=== PATIENT | female | born 1945 | race Caucasian/White ===

== ENCOUNTER 2017-02-17 08:43 | Inpatient (IN) | payer MEDICARE ==
[2017-02-17] VITALS (13 sets, daily range): BP systolic 94–145; BP diastolic 58–73; PULSE 82–105; RESP 16–26; O2SAT 93–95
[~2017-02-17] VITALS: Ht 162.6 cm; Wt 88.0 kg
[2017-02-17] MEDS: Lactated Ringer's 1,000 ML IV SCH ×3 (05:00→11:51)
[~2017-02-17 08:43] MED LIST: ALBU8.5H2 INHALATION; BENA20TA PO; CALC600T12 PO; CeFAZolin 2 Gm/50 mL D5W IV Premix IV ONE; GABA-502 PO; KLO5T PO; LEVO75TA36 PO; MELO-253 PO; RIZA10TA26 PO; VENL150C PO; Vancomycin Inj 1,000 MG in IV Premix 1 EACH IV ONE
[2017-02-17] MEDS ORDERED: fentaNYL-PF 50 mCg/mL 2 mL Inj ONE (09:00)
[2017-02-17] MEDS ORDERED: Dexamethasone 4 mg/mL Inj ONE (09:00)
[2017-02-17] MEDS ORDERED: Propofol 10,000 mCg/mL 20 mL Inj ONE (09:00)
[2017-02-17] MEDS ORDERED: Bupiv-Spinal 0.75%/Dex 8.25% 2 mL Inj ONE (09:00)
[2017-02-17] MEDS ORDERED: CeFAZolin Inj 2 gm / 50mL D5W IV ONE (09:08)
[2017-02-17] MEDS ORDERED: Tranexamic Acid 100 mg/mL 10 mL Inj ONE (11:56)
[2017-02-17] MEDS ORDERED: Bupivacaine Liposome 1.3% 20 mL Inj ONE (11:57)
[2017-02-17] MEDS ORDERED: 0.9% Sodium Chloride 200 ML ONE (12:02)
[2017-02-17] MEDS ORDERED: Bupivacaine Liposome 1.3% 20 mL Inj INFILTRATE ONE (12:29)
[2017-02-17] MEDS ORDERED: 0.9% Sodium Chloride 10 mL Inj INFILTRATE ONE (12:30)
[2017-02-17] MEDS ORDERED: Bupivacaine-MPF 0.5% W/EPI 30 mL Inj INFILTRATE ONE (12:30)
[2017-02-17] MEDS ORDERED: Bupivacaine-MPF 0.25%/EPI 30 mL Inj INFILTRATE ONE (12:30)
[2017-02-17] MEDS ORDERED: Lactated Ringer's 1,000 ML IV SCH (12:32)
[2017-02-17] MEDS ORDERED: Lactated Ringer's 500 ML IV PRN (12:32)
--- NOTE | 2017-02-17 12:32 | PCM.HPANE ---
Patient Data Surgeon Admitting Provider: Attending Provider:Sarthak Dickens DO Primary Care Physician:Violet Rendon PA-C Other Provider:Aimee Shah Anesthesia Reason for Visit Left Knee Arthritis Ht/WT & BMI Height (Feet): 5 Height (Inches): 3.5 Weight (Kilograms): 90.71 Body Mass Index 34.00 Allergies Coded Allergies: oxycodone (Verified Allergy, Unknown, hallucinations, 02/11/17) Uncoded Allergies: CHOCOLATE (Allergy, Unknown, 02/11/17) DAIRY (Allergy, Unknown, 02/11/17) GRASSES-MOLDS (Allergy, Unknown, 02/11/17) WHEAT-QUINOA (Allergy, Unknown, rash, 02/11/17) Past Anesthesia History Anesthesia History: Positive for:: Anesthesia Reactions (nausea/vomiting after surgery), Denies:: Abnormal Airway, Difficult Intubation, Fam Anesthesia Reaction Diabetes History Hx Diabetes?: No (A1C being monitored- no diabetes dx) MRSA MRSA: No Medications Hypertension Medication: Yes Home Meds Incl Beta Griffin: No Reported Medications Albuterol HFA (Proair HFA)8.5 Gm Hfa.aer.ad2 Puffs INHALATION Q4H PRN For Shortness of Breath #1 INHALER 02/11/17 Meloxicam 15 Mg [id number] Mg PO DAILY 30 Days Ref 0 02/11/17 Rizatriptan (Maxalt)10 Mg Vucgsg77 Mg PO PRN migraines 02/11/17 Levothyroxine (Levoxyl)75 Mcg Najbcj28 Mcg PO DAILY Ref 0 02/11/17 Gabapentin 300 Mg [id number] Mg PO BID Ref 0 02/11/17 Venlafaxine ER (Effexor XR)150 Mg [id number] Mg PO DAILY Ref 0 02/11/17 Clonazepam 0.5 Mg Tablet0.5 Mg PO BID PRN For Anxiety Ref 0 02/11/17 Calcium Carbonate (Calcium)600 Mg [id number] Mg PO BID 02/11/17 Benazepril 20 Mg Whgbrq00 Mg PO DAILY 02/11/17 History History of ENT Problems?: Yes HEENT History: Positive for:: Dysphagia (since ACDF- a little "touchy") Sinus Problem (nasal surgery) TMJ (clenches, no nightguard) Denies:: Abnormal Airway Cataracts Difficult Intubation Glaucoma Hearing Problem Denture Type: None Teeth Condition: Within Normal Limits Hx of Heart Problems?: Yes Cardiovascular History: Positive for:: Hypertension Denies:: AICD Abdominal Aortic Aneurism Atrial Fibrillation Cardiac Surgery Chest Pain Congestive Heart Failure Coronary Artery Disease Edema Heart Murmur Irregular Heartbeat Pacemaker Peripheral Vascular Rheumatic Fever Hx of Respiratory Problem?: Yes Respiratory History: Positive for:: Asthma Use of C-PAP Machine Use of Inhalers / NEBS Denies:: COPD Emphysema Oxygen Administration Pneumonia Tuberculosis Hx Neurologic Problems?: No Neurological History: Positive for:: Headaches (decreased since using CPAP) Denies:: Alzheimer's Disease CVA Multiple Sclerosis Parkinson's Disease Seizures TIA Hx of GI Problems?: No Hx of Problems?: No Genitourinary History: Denies:: Kidney Stones Urinary Tract Infection Female Hx: Denies:: Currently (hysterectomy) Problems with Breasts? Skin History: Denies:: History Skin Disorders? Pressure Ulcers Hx Musculoskeletal Problems?: Yes Musculoskeletal History: Positive for:: Back Injury (ACDF C3-5 ) Musculoskeletal Trauma (left knee current admission problem) Osteoarthritis Denies:: Fibromyalgia Joint Replacement Myasthenia Gravis Hx of Psycho/Social Problems?: Yes Psycho Social History: Positive for:: Anxiety Hx Depression Hx Surgeries?: Yes (Hyst, nasal surgery, ACDF, ORIF patella with hardware removal) Hx Any Other Health Problems?: Yes Other History: Positive for:: Thyroid Disease Denies:: Cancer History Blood Transfusions: Positive for:: Accept Blood Products? Denies:: Blood Transfusions Hx Diabetes: No (A1C being monitored- no diabetes dx) Hx Alcohol Use: YesAlcoholic Drinks Per Day: one drink dailyHx Substance Use: NoHave You Smoked inLast 12 mo: No Stop/Bang P-Blood Pressure: treated: Yes B- Body Mass Index > 35 kg/m2: No A- Age over 50: Yes N- Neck Large Circumference: No G- Gender Male: No Risk Assessment Category Category 1A: Patient has history of documented sleep apnea, and HAS NOT received any narcotic, sedative or anesthesia administration during this stay. Category 1B: Patient has history of documented sleep apnea, and HAS received any narcotic , sedative or anesthesia administration during this stay Category 2: Patient has SUSPECTED Obstructive Sleep Apnea, and HAS received any narcotic , sedative or anesthesia administration during this stay. Category 3: Patient has SUSPECTED Obstructive Sleep Apnea and HAS NOT received narcotic, sedative or anesthesia administration during this stay. Category 4: Outpatient in Procedural Areas with known sleep apnea or who screen positive for High Risk via the STOP/BANG questionnaire. Exam Exam General Appearance: Alert, Oriented X3, Cooperative, No Acute Distress HEENT/AIRWAY: MP 3 Lungs: Clear to Auscultation Heart: Exam Unremarkable Plan Impression Patient chart reviewed, patient interviewed and anesthestic plan with risks, benefits, and alternatives discussed, and informed consent obtained. ASA Physical Status: ASA2 Mod Systemic Disease Anesthetic Plan: Regional Block, SAB Bene/Risks/Altern/Consents: Yes HP Complete Prior to Induction: Yes Zeke Arroyo MD February 17, 2017 08:45
[2017-02-17] MEDS ORDERED: MetoCLOpramide 5 mg/mL 2 mL Inj IVPUSH PRN (12:35)
[2017-02-17] MEDS ORDERED: Dexamethasone 4 mg/mL Inj IVPUSH PRN (12:35)
[2017-02-17] MEDS ORDERED: Phenylephrine 10,000 mCg/mL Inj IVPUSH PRN (12:35)
[2017-02-17] MEDS ORDERED: EPHEDrine Sulfate 50 mg/mL Inj IVPUSH PRN (12:35)
[2017-02-17] MEDS ORDERED: Ondansetron 2 mg/mL 2 mL Inj IVPUSH PRN ×2 (12:35→14:45)
[2017-02-17] MEDS ORDERED: HYDROmorphone 1 mg/mL Inj IVPUSH PRN (12:35)
[2017-02-17] MEDS ORDERED: fentaNYL-PF 50 mCg/mL 2 mL Inj IVPUSH PRN (12:35)
[2017-02-17] MEDS ORDERED: Acetaminophen IV 1,000 MG in IV Premix 1 EACH IV PRN (13:50)
--- NOTE | 2017-02-17 14:28 | OP ---
[address] [address] OPERATIVE REPORT PATIENT: JACK LONG : 1945 MR#: [id number] ADMIT: 02/17/2017 JOB ID: [id number] DATE OF SURGERY: 02/17/2017 PREOPERATIVE DIAGNOSIS(ES): Left knee degenerative joint disease. POSTOPERATIVE DIAGNOSIS(ES): Left knee degenerative joint disease. PROCEDURE: Left total knee arthroplasty. SURGEON: Sarthak Dickens D.O. CROCODILE FARMER: Frida Kenny PA-C INDICATIONS: The patient is a 71-year-old female with left knee severe degenerative arthritis who has failed conservative measures and wished to proceed with a left total knee arthroplasty. We discussed risks, benefits, and possible complications of surgery including, but not limited to, injury to nerves and vessels, infection, bleeding, incomplete relief of symptoms, stiffness, need for additional procedures. The patient had good understanding. All questions were answered and she wished to proceed. PROCEDURE IN DETAIL: The patient is brought to the operating room. She was given a preoperative antibiotic, 1 g TXA and a surgical time-out was performed. The left lower extremity was exsanguinated. The tourniquet was inflated and an incision was made over the anteromedial knee. Dissection was carefully carried through the subcutaneous tissue. Electrocautery was used for hemostasis. A split was then made in the quad tendon leaving a cuff of tissue for repair. This was taken along the medial retinaculum down onto the proximal medial tibial face. The patella was everted and the femur was instrumented with the intramedullary reamer and the intramedullary guide zaki. A 5 degree distal valgus cut angle was chosen and 10 mm planned resection. The block was pinned into position. The cut was performed. The tibia was then addressed using an extramedullary tibial cutting guide. This was pinned into position taking care to ensure that the guide was parallel to the long axis of the tibia and the cut was performed completed with an osteotome. The femur was then sized, and felt to be a size 5 with 5 degrees of external rotation. The pins were placed through the femoral Sizer and the cutting block was then used. The distal femoral cuts were performed. Next a trial was performed with the femur and the tibia and the rotation of the tibia was marked. I felt that the size 4 tibia seemed to fit quite nicely with the patient's anatomy. The box cut was performed and the tibia was drilled and punched. The menisci were then removed and the patella was everted and cut with a free hand type technique from an initial thickness of 23 to a thickness of 14. A 35 mm patellar button was chosen, drilled for and trialed and had excellent tracking. The femoral lugs were drilled. The bony surfaces were washed and dried, and the components were then cemented into position beginning with the DePuy Attune fixed bearing 4 tibia, followed by the DePuy Attune posterior stabilized 5 femur and 35 mm patellar button. A 6 mm thickness poly was inserted and all excess cement was removed. The knee was irrigated. The tourniquet was then let down. Electrocautery was used for hemostasis. The wound was then closed with #1 Surgilon and 0-Vicryl. The subcu was closed with 2-0 and the skin was closed with a running subcuticular 3-0 V lock suture. Naropin was added as an adjunct local anesthetic. Sterile dressings were applied. The patient tolerated the procedure well. Blood loss was 50 cc. POSTOPERATIVE PROTOCOL: Have the patient weightbear to tolerance. Use a walker for ambulation. Ice and elevate and will try [place] 5/325 for pain and Lovenox for DVT prophylaxis as the patient is quite sensitive to narcotics and had difficulty with Percocet in the past.
[2017-02-17] MEDS ORDERED: HYDROmorphone 0.5 mg/0.5 mL iSecure Syringe IVPUSH PRN (14:45)
[2017-02-17] MEDS ORDERED: Polyethylene Glycol (PEG) 17 Gm Powder PO PRN (14:45)
[2017-02-17] MEDS ORDERED: diphenhydrAMINE 25 mg Capsule PO PRN (14:45)
[2017-02-17] MEDS ORDERED: Magnesium Hydroxide 10 mL Oral Concentration PO PRN (14:45)
[2017-02-17] MEDS ORDERED: Ketorolac 15 mg/mL Inj IVPUSH PRN (14:45)
--- NOTE | 2017-02-17 14:59 | PCM.ANEP1 ---
Post Anesthesia Phase 1 PACU Phase 1 Assessment Vital Signs Vital Signs Date Time Temp Pulse Resp B/P Pulse Ox O2 Delivery O2 Flow Rate FiO2 02/17/17 14:52 92 20 129/61 93 Room Air 02/17/17 14:37 90 19 130/62 94 Room Air 02/17/17 14:26 91 26 122/61 94 Room Air 02/17/17 14:20 92 18 124/58 94 Room Air 02/17/17 14:16 95 19 131/71 95 Room Air 02/17/17 14:13 18 94 02/17/17 14:10 96 18 138/59 95 Room Air 02/17/17 14:05 96 18 125/72 94 Room Air 02/17/17 14:01 36.7 98 25 94/64 94 Room Air 02/17/17 09:25 36.0 82 18 145/58 94 Room Air 02/17/17 09:25 CPAP/BIPAP Anesthetic Administered: Regional Block, SAB Level of Alertness: Awake, talking VALLES's with Equal Strength: No (spinal) Pain: No Nausea or Vomiting: No Oxygen Delivery: Room Air Lungs: Clear to Auscultation Dermatome Level: T12 (Symphysis Pubis) Complications: No Zeke Arroyo MD February 17, 2017 14:59
--- NOTE | 2017-02-17 15:11 | DRSVH ---
PROCEDURE: X-RAY LEFT KNEE, ONE OR TWO VIEWS ([id number]) INDICATIONS: POST OPERATIVE LEFT KNEE SURGERY TECHNIQUE: 2 views of the knee were acquired. COMPARISON: [facility], , XR KNEE ARTHRITIC SERIES LT, 12/01/2016, 8:07. FINDINGS: Expected postoperative changes within the soft tissues of the left knee are identified with soft tiss ue air, edema, and fluid within the joint, compatible with the patient's history of recent total knee arthroplasty. The metallic prosthetic components appear to be intact and appropriately positioned. No periprosthetic fractures are identified. No unexpected radiopaque foreign bodies are seen. IMPRESSION: Interval total left knee arthroplasty. No fractures. Dictated by: Rich Veronica M.D. on 02/17/2017 at 14:08 Approved by: Rich Veronica M.D. on 02/17/2017 at 14:09
[2017-02-17] MEDS: 0.9% Sodium Chloride 1,000 ML IV SCH (16:21)
[2017-02-17] MEDS: Sodium Chloride LOK Flush 10 mL Syringe IV SCH (16:30)
[2017-02-17] MEDS: CeFAZolin Inj 2 GM in IV Premix 1 EACH IV SCH (18:05)
[2017-02-17] MEDS: hydrOXYzine Pamoate 25 mg Capsule PO PRN (18:32)
[2017-02-17] MEDS: Senna-Docusate 8.6-50 mg Tablet PO SCH (19:48)
[2017-02-17] MEDS: HYDROcodone-APAP 5-325 mg Tablet PO PRN (19:52)
[2017-02-17] MEDS ORDERED: Albuterol 2.5 mg/3 mL Inhalation Solution NEB PRN (20:00)
[2017-02-18 00:21] VITALS: BP 127/74; PULSE 87; RESP 17; O2SAT 95
[2017-02-18] MEDS: Sodium Chloride LOK Flush 10 mL Syringe IV SCH ×4 (00:30→23:27)
[2017-02-18] MEDS: 0.9% Sodium Chloride 1,000 ML IV SCH ×3 (00:41→19:34)
[2017-02-18] MEDS: CeFAZolin Inj 2 GM in IV Premix 1 EACH IV SCH (01:16)
[2017-02-18] MEDS: HYDROcodone-APAP 5-325 mg Tablet PO PRN ×5 (03:31→23:26)
[2017-02-18] MEDS: hydrOXYzine Pamoate 25 mg Capsule PO PRN ×5 (03:32→23:26)
[2017-02-18 05:10] VITALS: BP 118/60; PULSE 75; RESP 17; O2SAT 97
[2017-02-18 07:25] LABS: BASOPHILS % (AUTO) 0.1 % (0-3); EOSINOPHILS % (AUTO) 0.1 % (0-5); MONOCYTES % (AUTO) 7.3 % (4-12); Mean Corpuscular Hemoglobin 29.9 pg (27.0-35.0); Mean Corpuscular Volume 91.1 fL (81-100); NEUTROPHILS % (AUTO) 85.2 % (40-74); Platelet Count 253 bil/L (150-400)
[2017-02-18] MEDS: Venlafaxine XR 75 mg ER24 Capsule PO SCH (08:31)
[2017-02-18] MEDS: Senna-Docusate 8.6-50 mg Tablet PO SCH ×2 (08:32→19:34)
--- NOTE | 2017-02-18 08:37 | PCM.PNORTH ---
Subjective Date of Service: February 18, 2017 Visit Information: Reason for Visit Left Knee Arthritis Surgery/Surgery Date left total knee arthroplasty 02/17/2017 Post-Op Day # 1 Date of Admission: February 17, 2017 at 15:09 Hospital Day # Subjective Patient reports she is tolerating the [place] well. She has been out of bed multiple times to go to the bathroom. She admits that she is having incisional pain. Patient has had multiple surgeries on the right knee and feels that she is doing quite well. Postop General: No Complaints, No Shortness of Breath, No Chest Pain, Good Appetite Pain Management: PO Objective Exam Objective Patient is seen sitting up in bed. She is in good spirits. She is looking forward to getting up and moving with physical therapy. Vital Signs and I/O Vital Sign - Last Date Time Temp Pulse Resp B/P Pulse Ox O2 Delivery O2 Flow Rate FiO2 02/18/17 05:10 36.4 75 17 118/60 97 Room Air Intake and Output 02/17/17 02/17/17 02/18/17 Cumulative From/Thru 15:00 23:00 07:00 02/11/17 11:54 - 02/18/17 05:53 Intake Total 1250 ml 663 ml 1230 ml 3143 ml Output Total 50 ml 0 ml 1200 ml 1250 ml Balance 1200 ml 663 ml 30 ml 1893 ml Intake Oral 475 ml 400 ml 875 ml IV Total 1250 ml 188 ml 830 ml 2268 ml Output Urine Total 0 ml 1200 ml 1200 ml Estimated Blood Loss 50 ml 50 ml # Bowel Movements 0 0 Lab & Micro Results Laboratory Tests Test 02/18/17 06:54 White Blood Count 14.6th/mm3 (3.8-10.1) Red Blood Count 4.28mil/mm3 (3.90-5.20) Hemoglobin 12.8g/dL (12.0-15.6) Hematocrit 39.0% (35.0-46.0) Mean Corpuscular Volume 91.1fL (81-100) Mean Corpuscular Hemoglobin 29.9pg (27.0-35.0) Mean Corpuscular Hemoglobin Concent 32.8% (32.0-37.0) Red Cell Distribution Width 14.0% (12.3-15.4) Platelet Count 253bil/L (150-400) Neutrophils (%) (Auto) 85.2% (40-74) Lymphocytes (%) (Auto) 7.1% (14-46) Monocytes (%) (Auto) 7.3% (4-12) Eosinophils (%) (Auto) 0.1% (0-5) Basophils (%) (Auto) 0.1% (0-3) Sodium Level 142mEq/L (134-144) Potassium Level 5.4mEq/L (3.5-5.2) Chloride Level 105mEq/L (97-108) Carbon Dioxide Level 26mmol/L (18-29) Blood Urea Nitrogen 17mg/dL (8-27) Creatinine 0.57mg/dL (0.57-1.00) Estimat Glomerular Filtration Rate 151mL/min (>59) Glucose Level 128mg/dL (60-99) Calcium Level 9.3mg/dL (8.5-10.1) Result Diagram: 02/18/1754 02/18/1754 General Appearance: Alert, Oriented X3, Cooperative, No Acute Distress Extremities: Distal Pulses Palpable, No Compartment Syndrom Noted, Thigh & Calf Soft/Nontender Postop Sensory Motor: Distal Motor Intact, NVI Distally SURGICAL WOUND : Wound Location/Description Dressing is clean, dry and intact Activity: Activity per PT, Ambulate with PT Catheters: None Assessment & Plan Impression POD #1 status post left total knee arthroplasty Problems: Plan Weightbearing: Weightbearing as tolerated with front wheeled walker DVT prophylaxis: Lovenox 40 mg subcutaneous 2 weeks followed by aspirin 325 mg twice a day 4 weeks No NSAIDs or Mobic for 2 weeks while taking Lovenox Physical therapy for transfers, progressive ambulation, therapeutic exercise Wound care: PA will change dressing on postop day 2 Discharge plan: Discharge home tomorrow. Start outpatient physical therapy next week Follow-up plan: In 2 weeks at [facility] with PA for wound check and at [address] Dickens with x-rays Pain Management: [place] 5 mg, Vistaril, Tylenol, Toradol, Dilaudid VTE Prophylaxis: Sub-Q Enoxaparin, SCDs Resuscitation Status: CPR: Attempt Resuscitation Frida Kenny PA-C February 18, 2017 08:37
[2017-02-18 09:49] VITALS: BP 115/59; PULSE 90; RESP 16; O2SAT 97
[2017-02-18 16:07] VITALS: BP 112/69; PULSE 90; RESP 16; O2SAT 99
[2017-02-18 20:05] VITALS: BP 121/68; PULSE 89; RESP 16; O2SAT 96
[2017-02-19] MEDS: HYDROcodone-APAP 5-325 mg Tablet PO PRN ×2 (03:43→12:24)
[2017-02-19] MEDS: hydrOXYzine Pamoate 25 mg Capsule PO PRN (03:43)
[2017-02-19 05:49] LABS: BASOPHILS % (AUTO) 0.3 % (0-3); EOSINOPHILS % (AUTO) 1.3 % (0-5); MONOCYTES % (AUTO) 12.8 % (4-12); Mean Corpuscular Hemoglobin 30.3 pg (27.0-35.0); Mean Corpuscular Volume 92.1 fL (81-100); NEUTROPHILS % (AUTO) 63.9 % (40-74); Platelet Count 234 bil/L (150-400)
[2017-02-19 06:19] VITALS: BP 146/76; PULSE 89; RESP 17; O2SAT 97
--- NOTE | 2017-02-19 06:39 | PCM.PNORTH ---
Subjective Date of Service: February 19, 2017 Visit Information: Reason for Visit Left Knee Arthritis Surgery/Surgery Date s/p left totol knee arthroplasty Post-Op Day # 2 Date of Admission: February 17, 2017 at 15:09 Hospital Day # Subjective Patient complains of incisional pain. She walked 80 feet in the hallway yesterday. Today she feels the leg more and is a bit more painful. She has already been up and walking this morning. Postop General: No Shortness of Breath, No Chest Pain, Good Appetite Pain Management: PO Objective Exam Objective Patient is seen sitting up in bed. She is able to perform a straight leg raise with a 10 quad leg. Vital Signs and I/O Vital Sign - Last Date Time Temp Pulse Resp B/P Pulse Ox O2 Delivery O2 Flow Rate FiO2 02/19/17 06:19 36.9 89 17 146/76 97 Room Air Intake and Output 02/18/17 02/18/17 02/19/17 Cumulative From/Thru 15:00 23:00 07:00 02/11/17 11:54 - 02/19/17 06:19 Intake Total 520 ml 1200 ml 4863 ml Output Total 900 ml 75 ml 2225 ml Balance -380 ml 1125 ml 2638 ml Intake Oral 520 ml 1200 ml 2595 ml IV Total 2268 ml Output Urine Total 900 ml 75 ml 2175 ml Estimated Blood Loss 50 ml # Bowel Movements 0 0 0 Lab & Micro Results Laboratory Tests Test 02/18/17 06:54 02/19/17 05:18 White Blood Count 14.6th/mm3 (3.8-10.1) 10.4th/mm3 (3.8-10.1) Red Blood Count 4.28mil/mm3 (3.90-5.20) 3.90mil/mm3 (3.90-5.20) Hemoglobin 12.8g/dL (12.0-15.6) 11.8g/dL (12.0-15.6) Hematocrit 39.0% (35.0-46.0) 35.9% (35.0-46.0) Mean Corpuscular Volume 91.1fL (81-100) 92.1fL (81-100) Mean Corpuscular Hemoglobin 29.9pg (27.0-35.0) 30.3pg (27.0-35.0) Mean Corpuscular Hemoglobin Concent 32.8% (32.0-37.0) 32.9% (32.0-37.0) Red Cell Distribution Width 14.0% (12.3-15.4) 14.3% (12.3-15.4) Platelet Count 253bil/L (150-400) 234bil/L (150-400) Neutrophils (%) (Auto) 85.2% (40-74) 63.9% (40-74) Lymphocytes (%) (Auto) 7.1% (14-46) 21.6% (14-46) Monocytes (%) (Auto) 7.3% (4-12) 12.8% (4-12) Eosinophils (%) (Auto) 0.1% (0-5) 1.3% (0-5) Basophils (%) (Auto) 0.1% (0-3) 0.3% (0-3) Sodium Level 142mEq/L (134-144) 140mEq/L (134-144) Potassium Level 5.4mEq/L (3.5-5.2) 4.2mEq/L (3.5-5.2) Chloride Level 105mEq/L (97-108) 102mEq/L (97-108) Carbon Dioxide Level 26mmol/L (18-29) 28mmol/L (18-29) Blood Urea Nitrogen 17mg/dL (8-27) 18mg/dL (8-27) Creatinine 0.57mg/dL (0.57-1.00) 0.61mg/dL (0.57-1.00) Estimat Glomerular Filtration Rate 151mL/min (>59) 139mL/min (>59) Glucose Level 128mg/dL (60-99) 119mg/dL (60-99) Calcium Level 9.3mg/dL (8.5-10.1) 8.7mg/dL (8.5-10.1) Result Diagram: 02/19/1751702/19/17517 General Appearance: Alert, Oriented X3, Cooperative Extremities: Distal Pulses Palpable, No Compartment Syndrom Noted, Thigh & Calf Soft/Nontender Postop Sensory Motor: Distal Motor Intact, NVI Distally SURGICAL WOUND : Wound Location/Description Left knee: Surgical dressing is removed. There is mild serous drainage on the bandage. Steri-Strips are intact. There is no acute drainage. There is mild ecchymosis, as expected. Wound is cleansed with hydrogen peroxide. Wound is dressed with Silverlon dressing and an ABG covered with elastic bandage. Activity: Activity per PT, Ambulate with PT Catheters: None Assessment & Plan Impression POD #2 status post left total knee arthroplasty Problems: Plan Weightbearing: Weightbearing as tolerated with front wheeled walker DVT prophylaxis: Lovenox 40 mg subcutaneous 2 weeks followed by aspirin 325 mg twice a day 4 weeks No NSAIDs or Mobic for 2 weeks while taking Lovenox Physical therapy for transfers, progressive ambulation, therapeutic exercise Wound care: PA changed dressing today to silver lined dressing and ABDs with Jeremi wrap. Jeremi wrap can be removed when compression stockings are applied today. Patient has brought her on stockings. Nursing: Please apply thigh-high compression stockings today Discharge plan: Discharge home this afternoon. Start outpatient physical therapy next week Follow-up plan: In 2 weeks at [facility] with PA for wound check and at [address] Dickens with x-rays Pain Management: [place], vistaril VTE Prophylaxis: Sub-Q Enoxaparin, SCDs Resuscitation Status: CPR: Attempt Resuscitation [place] LakesFrida V[place] PA-C February 19, 2017 06:39
[2017-02-19] MEDS: 0.9% Sodium Chloride 1,000 ML IV SCH (06:41)
--- NOTE | 2017-02-19 06:44 | PCM.DIORTH ---
Ortho Discharge Instruction Date of Service: February 19, 2017 Dates of Hospitalization Date of Hospital Admission February 17, 2017 at 15:09 Providers Admitting Physician: Sarthak Dickens DO Primary Care Physician: Violet Rendon PA-C Attending Physician: Sarthak Dickens DO Diet Discharge Diet: No restrictions Activity Discharge Activity-General: Be up and about, Balance rest and activity, Elevate & ice extremity Left Lower Extremity: Weight Bearing as tolerated Discharge Assist Device: Front Wheeled Walker Dressing and Incisional Care Discharge Dressing Care: Keep dressing clean, dry & intact, Other (Leave steri strips in place. We will remove them at our first post op visit) Discharge Hygiene: May shower (see instructions below), DO NOT soak incision under water, NO bathtub, hot tub or whirlpool Additional Instructions Discharge Instructions Weightbearing: Weightbearing as tolerated with front wheeled walker DVT prophylaxis: Lovenox 40 mg subcutaneous for 10 more days followed by aspirin 325 mg twice a day 4 weeks No NSAIDs or Mobic for 2 weeks while taking Lovenox We expect you to have bruising and discoloration due to the blood thinning medication. Wound care: change dressing every 2 days or sooner if needed Activity: every hour of the day you are awake, get up and either walk or do some the exercises you learned from therapy Increase your activity each day. Push yourself with the bending and straightening. It will hurt but you need to push yourself. Shower Instructions: You may shower when the wound has no drainage present x 24 hours. Wound may be uncovered to shower. Let soap and water run over the wound, pat dry and apply a new dressing. You may continue using the Silver dressing if it is clean. Handle it by the corners. Wear compression stockings for 3-4 weeks. The stockings will hold the dressing in place. Start outpatient physical therapy next week Follow Up Plan Follow Up Plan Follow-up plan: In 2 weeks at [facility] with VANGIE for wound check and at [address] Dickens with x-rays Call your provider for: Fever, Chills, Shortness of breath, Vomitting, Drainage at incision, Wound redness (that is spreading), Increasing pain (for no reason) Frida Kenny PA-C February 19, 2017 06:43
[2017-02-19] MEDS ORDERED: HYDR-4003 PO (08:19)
[2017-02-19] MEDS ORDERED: ENOX40DI8 SUBQ (08:19)
[2017-02-19] MEDS ORDERED: HYDR-3797 PO (08:19)
--- NOTE | 2017-02-19 08:23 | PCM.DC.ORT ---
Discharge Summary Date of Service: February 19, 2017 Date of Hospital Admission: February 17, 2017 at 15:09 Date of Surgery: February 17, 2017 Date of Discharge: February 19, 2017 Reason for Hospitalization: Left knee arthritis Procedures Performed: Left total knee arthroplasty Hospital Course: The patient was admitted to the hospital on 02/17/2017 and underwent the above procedure. Antibiotic prophylaxis consisting of Ancef and vancomycin. The surgeon was Dr. Dickens. Patient tolerated the procedure well and was transferred to recovery room in stable condition. Patient had physical therapy to work on ambulation and transfers. Weightbearing as tolerated with walker. Pain was managed with Dilaudid, [place], Vistaril, Toradol. DVT prophylaxis: Lovenox 40 mg SQ daily, SCD and compression stockings. Patient progressed well with physical therapy and on POD-2 was discharged home. Follow-up: at [facility] 2 weeks postop for wound check and at [address] Dickens with x-ray Diagnosis at Time of Discharge Status post left total knee arthroplasty Problems: Disposition: Discharged home in stable condition with her to assist in her care Discharge Instructions: Weightbearing: Weightbearing as tolerated with front wheeled walker DVT prophylaxis: Lovenox 40 mg subcutaneous for 10 more days followed by aspirin 325 mg twice a day 4 weeks No NSAIDs or Mobic for 2 weeks while taking Lovenox We expect you to have bruising and discoloration due to the blood thinning medication. Wound care: change dressing every 2 days or sooner if needed Activity: every hour of the day you are awake, get up and either walk or do some the exercises you learned from therapy Increase your activity each day. Push yourself with the bending and straightening. It will hurt but you need to push yourself. Shower Instructions: You may shower when the wound has no drainage present x 24 hours. Wound may be uncovered to shower. Let soap and water run over the wound, pat dry and apply a new dressing. You may continue using the Silver dressing if it is clean. Handle it by the corners. Wear compression stockings for 3-4 weeks. The stockings will hold the dressing in place. Start outpatient physical therapy next week Albuterol HFA (Proair HFA) 8.5 Gm Hfa.aer.ad 2 PUFFS INHALATION Q4H PRN PRN For Shortness of Breath Benazepril (Benazepril) 20 Mg Tablet 20 MG PO DAILY Calcium Carbonate (Calcium) 600 Mg Tablet 600 MG PO BID Clonazepam (Clonazepam) 0.5 Mg Tablet 0.5 MG PO BID PRN PRN For Anxiety Enoxaparin Sodium (Enoxaparin Sodium) 40 Mg/0.4 Ml Syringe 40 MG SUBQ Q24 Gabapentin (Gabapentin) 300 Mg Capsule 300 MG PO BID Hydrocodone-Acetaminophen 5-325 mg (Hydrocodone-Acetaminophen 5-325 mg) 1 Each Tablet 1-2 TABLET PO Q4H PRN PRN For Moderate Pain Max 8 per day Hydroxyzine Pamoate (HydrOXYzine Pamoate) 25 Mg Capsule 25 MG PO Q6H PRN PRN For Spasm and/or Restlessness Levothyroxine (Levoxyl) 75 Mcg Tablet 75 MCG PO DAILY Rizatriptan (Maxalt) 10 Mg Tablet 10 MG PO PRN migraines Venlafaxine ER (Effexor XR) 150 Mg Capsule 150 MG PO DAILY Frida Kenny PA-C February 19, 2017 08:23
[2017-02-19] MEDS: Senna-Docusate 8.6-50 mg Tablet PO SCH (08:42)
[2017-02-19 08:46] VITALS: BP 128/71; PULSE 94; RESP 16; O2SAT 96
[2017-02-19] MEDS: Sodium Chloride LOK Flush 10 mL Syringe IV SCH (09:21)
[2017-02-19] MEDS: Venlafaxine XR 75 mg ER24 Capsule PO SCH (09:22)
== END 2017-02-19 13:23 | disposition home or self-care (01) | DRG 470 ==
LOC: SAS 08:43 → EDUNIT# 09:45 → OSC 15:09
PROVIDERS: ADMIT Orthopaedic Surgery; ATTEND Orthopaedic Surgery
PROC: 0SRD0J9 Replacement of Left Knee Joint with Synthetic Substitute, Cemented, Open Approach (ICD-10-PCS; principal; 2017-02-17 10:15)
DX: M17.12 Unilateral primary osteoarthritis, left knee (principal); I10 Essential (primary) hypertension; Z79.51 Long term (current) use of inhaled steroids; J45.909 Unspecified asthma, uncomplicated; E03.9 Hypothyroidism, unspecified; F41.9 Anxiety disorder, unspecified; G43.909 Migraine, unspecified, not intractable, without status migrainosus